=== PATIENT | male | born 1955 | race Caucasian/White ===

== ENCOUNTER 2022-10-21 09:56 | Emergency (ER) | payer MEDICARE, SELFPAY ==
[2022-10-21 09:56] VITALS: BP 148/83; PULSE 75; RESP 14; TEMP 36.8; O2SAT 100; BMI 26.4
--- NOTE | 2022-10-21 10:15 | VDLE_ITS ---
Reason For Study: Pain Procedure LEFT This is a venous duplex using B-mode, color GSV is normal. flow and spectral Doppler. CFV is compressible, spontaneous, phasic, Exam performed portable in ED. competent, and demonstrates normal A preliminary report was called and/or faxed augmentation. to Dr. Renee. FV is compressible, spontaneous, phasic, competent and demonstrates normal augmentation. POP V is compressible, spontaneous, phasic, competent and demonstrates normal augmentation. T/P Trunk is compressible. PTV is compressible. LT PerV is compressible. Nonvascularized structure noted in the left proximal calf muscle that measures 1.41 x 2.6. VL/Venous Duplex US, Unilateral Interpretation Summary Deep veins of the left lower extremity are patent and compressible segmentally. There is no evidence of left lower extremity deep vein thrombosis. The left great saphenous vein batsheva ears patent and compressible segmentally. Nonvascularized structure noted in the left proximal calf muscle that measures 1.41 x 2.6. Ordering Physician: Coy Renee Referring Physician: Jonah Washington Performed By: Jemma King RVT
--- NOTE | 2022-10-21 10:16 | EDS_ITS ---
HPI History of Present Illness Chief Complaint: Lower Extremity Injury Narrative Narrative: 67-year-old male presents with pain and swelling of his left leg that has had for at least 9 days. He relates history that he and his took a car ride to [place] to visit his family. He did some light exercise with swimming but denies any injury. On the car ride home, he noticed stiffness of his left leg. Additionally, he states he has been doing renovation work in his bathroom which has his leg in precarious positions. He has noticed pain in his left calf medially, and swelling of his ankle. He denies any direct trauma. No chest pain or shortness of breath. Last evening he had cramping in his leg, but thought this may be secondary to the Crestor alternative that he takes because his primary care physician has been having him take it 4 to 5 days a week, and he was reading that this can cause muscle cramping. His main concern is the pain and swelling of his left lower extremity because his had a DVT and this is how it had looked and felt with her lower extremity DVT. He noticed some redness over the medial aspect of his left calf last evening which has improved. He states he was sent here by his primary care physician to rule out DVT. [facility] Medical History no medical history Home Medications methylprednisolone 4 mg tablets in a dose pack 4 mg PO UD ##1 12/04/13 [Rx Last Taken Unknown] nabumetone 750 mg tablet 750 mg PO BID 12/04/13 [History Last Taken 12/04/13] oxycodone-acetaminophen 5 mg-325 mg tablet 1 - 2 tab PO Q4H PRN PRN Pain ##20 12/04/13 [Rx Last Taken Unknown] Allergy/AdvReac Type Severity Reaction Status Date / Time Antljbg-YHD-WoL Reductase Allergy Other Verified 10/21/22 09:59 Inhibitor [Bxigrza-Hnc-Faw Reductase Inhibitor] Surgical History no surgical history Social History Smoking Status: Never smoker ROS ROS ED ROS Narrative Constitutional: No fever, no chills. HEENT: No sore throat. No neck pain. No loss of vision. No rhinorrhea. Cardiovascular: No chest pain. No palpitations. No pedal edema. Respiratory: No cough, no shortness of breath. Abdominal: No abdominal pain. No nausea. No vomiting. Genitourinary: No dysuria. No hematuria. Musculoskeletal: Pain, swelling of left lower extremity, mainly in left medial calf. Reported erythema. Swollen ankle and foot. Pain from just above the knee all the way down. Neurologic: No headaches. No dizziness. No lightheadedness. Skin: No rash. No change in color. Psychiatric: No depression. No anxiety. EXAM Physical Exam Narrative Exam Narrative: Afebrile. Vital signs noted. HEENT: Normocephalic. Atraumatic. PERRL, EOMI. Neck soft and supple. No point tenderness or step off. Cardiovascular: Regular rate and rhythm. No murmurs, rubs, or gallops appreciated. Respiratory: No tachypnea. Lungs clear to auscultation bilaterally. Gastrointestinal: Abdomen soft, nontender, with normoactive bowel sounds. No rebound or guarding. Neurological: Awake. Alert. Nonfocal, nonlateralizing. Skin: No rash. Normal color. No pallor. Musculoskeletal: Left-sided pedal edema. Decreased range of motion left knee secondary to pain. Flexion and extension mechanisms intact. Noted edema of left ankle and foot. No palpable cord. Mild tenderness left medial calf. Const Vital Signs: 10/21/22 09:56 Temperature 98.3 F Temperature Source Temporal Pulse Rate 75 Respiratory Rate 14 Blood Pressure 148/83 H Blood Pressure Mean 104 Pulse Ox 100 Oxygen Delivery Method Room Air MDM MDM MDM Narrative Medical decision making narrative: I discussed with them obtaining laboratory work to check CPK and or lactic acid, but they declined. They are mainly here to rule out DVT of his left lower extremity as his symptoms began 9 days ago. His pulse ox is 100% on room air and he has a normal pulse of 75. Ultrasound was obtained of the left lower extremity. His left lower extremity ultrasound, preliminary result shows no evidence of DVT. At this point in time, I am unsure as to the cause of his left leg pain and swelling, but it may be more of a peripheral edema from venous insufficiency. He was told to elevate his left lower extremity and he may need to wear compression stockings. I feel he can be discharged safely home with follow-up. Return instructions to the emergency department were reviewed. Disposition is discharged home in stable condition. Discharge Plan Triage Chief Complaint: Lower Extremity Injury ED Provider: Coy Renee Dx/Rx/DC Orders Clinical Impression: Left leg pain, Left leg swelling Instructions: ED Pain, Acute, Uncertain Cause, ED Peripheral Edema, Unilateral Prescriptions: No Action nabumetone 750 MG tablet 750 mg PO BID methylprednisolone 4 MG Box 4 mg PO UD Qty: 1 0RF oxycodone-acetaminophen 1 TABLET tablet 1 - 2 tab PO Q4H PRN PRN (Reason: Pain) Qty: 20 0RF Primary Care Provider: Jonah Washington Referrals: Jonah Washington MD [Primary Care Provider] - 1-2 Days if not improving Disposition Disposition: Home, Self Care
== END 2022-10-21 10:49 | disposition home or self-care (01) ==
PROVIDERS: Emergency Provider Emergency Medicine; PCP Family Medicine; Visit Provider Emergency Medicine
DX: M79.605 Pain in left leg (principal); Z79.899 Other long term (current) drug therapy; M79.89 Other specified soft tissue disorders; R60.9 Edema, unspecified
CPT/HCPCS: 93971; 99282